=== PATIENT | female | born 1995 | race Caucasian/White ===

== ENCOUNTER 2020-08-29 17:30 | Inpatient (IN) | payer OTHER ==
[2020-08-29] MEDS ORDERED: AMPICILLIN SODIUM 2 GM VIAL ONE (17:52)
[2020-08-29] MEDS ORDERED: AMPICILLIN SODIUM 2 GM VIAL IVPB ONE (18:00)
[2020-08-29 18:10] VITALS: BMI 33.1
[2020-08-29] MEDS ORDERED: ELECTROLYTE-148 SOLN 1,000 ML IV SCH (18:30)
[2020-08-29] MEDS ORDERED: BUTORPHANOL TARTRATE 2 MG/ML VIAL ONE (19:35)
[2020-08-29] MEDS ORDERED: PROMETHAZINE HCL 25 MG/1 ML VIAL ONE (19:35)
[2020-08-29] MEDS ORDERED: PROMETHAZINE HCL 25 MG/1 ML VIAL IVPUSH ONE (19:45)
[2020-08-29] MEDS ORDERED: BUTORPHANOL TARTRATE 1 MG/ML VIAL IVPUSH ONE (19:45)
[2020-08-29 20:00] LABS: BASO % 0.3 % (0-2.0); EOS % 0.1 % (0-4.5); HEMATOCRIT 34.7 % (32.4-45.2); HEMOGLOBIN 11.6 GM/dL (10.7-15.3); LYMPH % 10.1 % (8-40); MCH 28.6 pg (25.7-33.7); MCHC 33.5 g/dl (32.0-36.0); MEAN CELL VOLUME 85.4 fl (80-96); MEAN PLT VOLUME 7.9 fl (7.5-11.1); MONO % 5.1 % (3.8-10.2); NEUT % 84.4 % (42.8-82.8); PLATELET COUNT 301 K/MM3 (134-434); RBC 4.07 M/mm3 (3.60-5.2); RDW 13.7 % (11.6-15.6); WHITE BLOOD COUNT 12.6 K/mm3 (4.0-10.0)
[2020-08-29 20:05] LABS: INR 0.92 (0.83-1.09); PROTHROMBIN TIME (PATIENT) 11.3 SEC (9.7-13.0)
[2020-08-29 20:07] LABS: ACTIVATED PTT 26.2 SECONDS (25.2-36.5)
[2020-08-29 20:24] LABS: CALCIUM 8.5 mg/dL (8.5-10.1)
[2020-08-29 20:25] LABS: BLOOD UREA NITROGEN 7.7 mg/dL (7-18)
[2020-08-29 20:28] LABS: CREATININE 0.5 mg/dL (0.55-1.3)
[2020-08-29] MEDS ORDERED: AMPICILLIN SODIUM 1 GM VIAL ONE (21:59)
[2020-08-29] MEDS: AMPICILLIN SODIUM 1 GM VIAL IVPB SCH (22:00)
[2020-08-29] MEDS ORDERED: LIDOCAINE HCL 1% PRESERVATIVE FREE - 30ML VIAL ONE (23:20)
[2020-08-29] MEDS ORDERED: OXYTOCIN 20 UNITS in 0.9% NS 20 UNIT/1,000 ML INFUS.BAG IV ONE (23:20)
[2020-08-30] MEDS: OXYTOCIN 20 UNITS in 0.9% NS 20 UNIT/1,000 ML INFUS.BAG IV SCH ×2 (01:17→05:35)
[2020-08-30] MEDS ORDERED: BISACODYL 10 MG SUPP.RECT RC PRN (01:27)
[2020-08-30] MEDS ORDERED: WITCH HAZEL 50% (TUCKS) 40 PAD/JAR PAD TP PRN (01:27)
[2020-08-30] MEDS ORDERED: BENZOCAINE 20% 57 GM BOTTLE TP PRN (01:27)
[2020-08-30] MEDS ORDERED: METHYLERGONOVINE MALEATE 0.2 MG/1 ML AMP IM PRN (01:27)
[2020-08-30] MEDS ORDERED: BENZOCAINE 28 GM HEMORRHOIDAL OINTMENT TP PRN (01:27)
[2020-08-30] MEDS: AMPICILLIN SODIUM 1 GM VIAL IVPB SCH ×2 (02:11→16:29)
[2020-08-30] MEDS ORDERED: ACETAMINOPHEN 325 MG TABLET (FP) ONE ×2 (02:13→08:18)
[2020-08-30] MEDS ORDERED: IBUPROFEN 600 MG TABLET (FP) PO ONE ×2 (02:13→08:18)
[2020-08-30] MEDS: ACETAMINOPHEN 325 MG TABLET (FP) PO PRN ×4 (02:15→20:36)
[2020-08-30] MEDS: IBUPROFEN 600 MG TABLET (FP) PO PRN ×4 (02:15→20:36)
[2020-08-30] MEDS ORDERED: OXYTOCIN 20 UNITS in 0.9% NS 20 UNIT/1,000 ML INFUS.BAG IV ONE (03:58)
[2020-08-30] MEDS ORDERED: PRENATAL VITAMINS W/ FOLIC ACID TABLET (FP) PO ONE (08:19)
[2020-08-30] MEDS: PRENATAL VITAMINS W/ FOLIC ACID TABLET (FP) PO SCH (09:36)
[2020-08-30] MEDS ORDERED: DIPHTH,PERTUSS(ACELL),TET 0.5 ML DISP.SYRIN IM ONE (10:00)
[2020-08-31] MEDS: IBUPROFEN 600 MG TABLET (FP) PO PRN ×2 (08:20→17:58)
[2020-08-31] MEDS: ACETAMINOPHEN 325 MG TABLET (FP) PO PRN ×2 (08:21→17:59)
[2020-08-31 08:30] LABS: BASO % 0.3 % (0-2.0); EOS % 0.9 % (0-4.5); HEMATOCRIT 29.1 % (32.4-45.2); HEMOGLOBIN 9.8 GM/dL (10.7-15.3); LYMPH % 22.2 % (8-40); MCH 29.3 pg (25.7-33.7); MCHC 33.8 g/dl (32.0-36.0); MEAN CELL VOLUME 86.7 fl (80-96); MEAN PLT VOLUME 7.5 fl (7.5-11.1); MONO % 6.9 % (3.8-10.2); NEUT % 69.7 % (42.8-82.8); PLATELET COUNT 268 K/MM3 (134-434); RBC 3.35 M/mm3 (3.60-5.2); RDW 14.5 % (11.6-15.6); WHITE BLOOD COUNT 10.1 K/mm3 (4.0-10.0)
[2020-08-31] MEDS: PRENATAL VITAMINS W/ FOLIC ACID TABLET (FP) PO SCH (09:09)
[2020-08-31] MEDS ORDERED: SENNOSIDES/DOCUSATE COMBO (SENNA PLUS) TABLET (UD) PO PRN (22:00)
[2020-09-01] MEDS: IBUPROFEN 600 MG TABLET (FP) PO PRN (06:37)
[2020-09-01] MEDS: ACETAMINOPHEN 325 MG TABLET (FP) PO PRN (06:38)
[2020-09-01] MEDS: PRENATAL VITAMINS W/ FOLIC ACID TABLET (FP) PO SCH (09:18)
[2020-09-01 10:44] VITALS: BP 121/75; PULSE 98; TEMP 98.9
== END 2020-09-01 14:19 | disposition home or self-care (01) | DRG 560 ==
LOC: JLDR 17:30 → J3W 08-30 13:49
PROVIDERS: ADMIT Obstetrics & Gynecology; ATTEND Obstetrics & Gynecology
PROC: 10907ZC Drainage of Amniotic Fluid, Therapeutic from Products of Conception, Via Natural or Artificial Opening (ICD-10-PCS; principal; 2020-08-29)
PROC: 10E0XZZ Delivery of Products of Conception, External Approach (ICD-10-PCS; 2020-08-30)
PROC: 0W8NXZZ Division of Female Perineum, External Approach (ICD-10-PCS; 2020-08-30)
PROC: 0KQM0ZZ Repair Perineum Muscle, Open Approach (ICD-10-PCS; 2020-08-30)
DX: O69.81X0 Labor and delivery complicated by cord around neck, without compression, not applicable or unspecified (principal); O70.1 Second degree perineal laceration during delivery; O99.824 Streptococcus B carrier state complicating childbirth; O90.81 Anemia of the puerperium; D64.9 Anemia, unspecified; Z3A.39 39 weeks gestation of pregnancy; Z37.0 Single live birth
CPT/HCPCS: 36415; 59025; 59409; 80048; 85025; 85610; 85730; 86593; 86780; 86850; 86900; 86901; 90715; C9803; U0003; U0005

== ENCOUNTER 2022-10-04 04:05 | Inpatient (IN) | payer OTHER ==
[2022-10-04 09:42] LABS: BASO % 0.2 % (0-2.0); HEMATOCRIT 34.4 % (32.4-45.2); HEMOGLOBIN 11.5 GM/dL (10.7-15.3); LYMPH % 8.6 % (8-40); MCH 27.4 pg (25.7-33.7); MCHC 33.3 g/dl (32.0-36.0); MEAN CELL VOLUME 82.2 fl (80-96); MEAN PLT VOLUME 7.1 fl (7.5-11.1); MONO % 2.1 % (3.8-10.2); NEUT % 89.1 % (42.8-82.8); PLATELET COUNT 316 10^3/uL (134-434); RBC 4.18 M/mm3 (3.60-5.2); RDW 14.8 % (11.6-15.6); WHITE BLOOD COUNT 12.7 K/mm3 (4.0-10.0)
[2022-10-04 09:48] LABS: INR 0.99 (0.83-1.09); PROTHROMBIN TIME (PATIENT) 11.5 SEC (9.7-13.0)
[2022-10-04 09:51] LABS: ACTIVATED PTT 26.7 SECONDS (25.2-36.5)
[2022-10-04 09:57] LABS: POTASSIUM 3.6 mmol/L (3.5-5.1)
[2022-10-04 09:59] LABS: BLOOD UREA NITROGEN 10.5 mg/dL (7-18)
[2022-10-04 10:02] LABS: CREATININE 0.5 mg/dL (0.55-1.3)
[2022-10-04] MEDS ORDERED: FENTANYL/BUPIVACAINE/NS/PF - PCEA - 50 ML DISP.SYRIN EP ONE ×2 (10:07→14:27)
[2022-10-04 10:29] VITALS: BMI 32.6
[2022-10-04] MEDS ORDERED: BUPIVACAINE HCL/PF 0.25% (2.5MG/ML) 10 ML VIAL ONE (10:29)
[2022-10-04] MEDS ORDERED: LIDO 2%/EPI 1:200000 PRESRVFRE (20 ML SDVIAL) ONE (10:29)
[2022-10-04] MEDS ORDERED: NALOXONE HCL 0.4 MG/ML VIAL IVPUSH PRN (10:57)
[2022-10-04] MEDS ORDERED: FENTANYL/BUPIVACAINE/NS/PF - PCEA - 50 ML DISP.SYRIN EP SCH (11:00)
[2022-10-04] MEDS ORDERED: OXYTOCIN 20 UNITS in 0.9% NS 20 UNIT/1,000 ML INFUS.BAG IV ONE (15:26)
[2022-10-04] MEDS ORDERED: LIDOCAINE HCL 1% PRESERVATIVE FREE - 30ML VIAL ONE (15:27)
[2022-10-04] MEDS ORDERED: oxyCODONE HCL 5 MG TABLET PO PRN (15:57)
[2022-10-04] MEDS ORDERED: METHYLERGONOVINE MALEATE 0.2 MG/1 ML AMP IM PRN (15:57)
[2022-10-04] MEDS ORDERED: BENZOCAINE 28 GM HEMORRHOIDAL OINTMENT TP PRN (15:57)
[2022-10-04] MEDS ORDERED: BENZOCAINE 20% 57 GM BOTTLE TP PRN (15:57)
[2022-10-04] MEDS ORDERED: WITCH HAZEL 50% (TUCKS) 40 PAD/JAR PAD TP PRN (15:57)
[2022-10-04] MEDS ORDERED: BISACODYL 10 MG SUPP.RECT RC PRN (15:57)
[2022-10-04] MEDS ORDERED: ACETAMINOPHEN 325 MG TABLET (FP) PO PRN (15:57)
[2022-10-04] MEDS ORDERED: OXYTOCIN 20 UNITS in 0.9% NS 20 UNIT/1,000 ML INFUS.BAG IV SCH (16:00)
[2022-10-04] MEDS ORDERED: ELECTROLYTE-148 SOLN 1,000 ML IV SCH (16:30)
[2022-10-04] MEDS ORDERED: MISOPROSTOL 200 MCG TABLET ONE (17:15)
[2022-10-04] MEDS ORDERED: MISOPROSTOL 200 MCG TABLET PR ONE (17:25)
[2022-10-04] MEDS ORDERED: ACETAMINOPHEN 325 MG TABLET (FP) ONE (18:11)
[2022-10-04] MEDS: IBUPROFEN 600 MG TABLET (FP) PO PRN (20:27)
[2022-10-05] MEDS: IBUPROFEN 600 MG TABLET (FP) PO PRN ×2 (05:47→12:35)
[2022-10-05 07:55] LABS: BASO % 0.2 % (0-2.0); EOS % 0.6 % (0-4.5); HEMATOCRIT 30.5 % (32.4-45.2); HEMOGLOBIN 10.1 GM/dL (10.7-15.3); LYMPH % 16.3 % (8-40); MCH 27.7 pg (25.7-33.7); MEAN CELL VOLUME 84.1 fl (80-96); MEAN PLT VOLUME 7.3 fl (7.5-11.1); MONO % 8.7 % (3.8-10.2); NEUT % 74.2 % (42.8-82.8); PLATELET COUNT 269 10^3/uL (134-434); RBC 3.63 M/mm3 (3.60-5.2); RDW 14.8 % (11.6-15.6); WHITE BLOOD COUNT 12.8 K/mm3 (4.0-10.0)
[2022-10-05] MEDS ORDERED: SENNOSIDES/DOCUSATE COMBO (SENNA PLUS) TABLET (UD) PO PRN (22:00)
[2022-10-05 22:49] VITALS: BP 100/54; PULSE 87; RESP 18; TEMP 97.7
[2022-10-06] MEDS: IBUPROFEN 600 MG TABLET (FP) PO PRN ×2 (01:13→09:08)
== END 2022-10-06 13:27 | disposition home or self-care (01) | DRG 560 ==
LOC: JDEL 04:05 → JLDR 08:00 → J3W 18:40
PROVIDERS: ADMIT Obstetrics & Gynecology; ATTEND Obstetrics & Gynecology
PROC: 10E0XZZ Delivery of Products of Conception, External Approach (ICD-10-PCS; principal; 2022-10-04)
PROC: 0HQ9XZZ Repair Perineum Skin, External Approach (ICD-10-PCS; 2022-10-04)
DX: O70.0 First degree perineal laceration during delivery (principal); Z3A.40 40 weeks gestation of pregnancy; Z37.0 Single live birth
CPT/HCPCS: 36415; 59025; 80048; 85025; 85610; 85730; 86780; 86850; 86900; 86901

== ENCOUNTER 2022-10-26 19:45 | Emergency (ER) | payer OTHER ==
[2022-10-26 19:49] VITALS: BMI 29.5
[2022-10-26] MEDS ORDERED: ACETAMINOPHEN 325 MG TABLET (FP) PO ONE (21:14)
[2022-10-26] MEDS ORDERED: ACETAMINOPHEN 325 MG TABLET (FP) ONE (21:23)
[2022-10-26 21:55] LABS: BASO % 0.8 % (0-2.0); EOS % 0.4 % (0-4.5); EPI CELLS 7 /uL (0-25.1); HEMATOCRIT 37.2 % (32.4-45.2); HEMOGLOBIN 11.8 GM/dL (10.7-15.3); HYALINE CASTS 0 /uL (0-3.1); LYMPH % 14.7 % (8-40); MCH 26.9 pg (25.7-33.7); MCHC 31.8 g/dl (32.0-36.0); MEAN CELL VOLUME 84.5 fl (80-96); MONO % 6.9 % (3.8-10.2); NEUT % 77.2 % (42.8-82.8); PLATELET COUNT 430 10^3/uL (134-434); RBC 4.41 M/mm3 (3.60-5.2); URINE APPEARANCE CLEAR; URINE BACTERIA 6 /uL (0-1359); URINE BILIRUBIN NEGATIVE (NEGATIVE); URINE COLOR YELLOW; URINE GLUCOSE (UA) NEGATIVE (NEGATIVE); URINE KETONE NEGATIVE (NEGATIVE); URINE LEUK ESTERASE 1+ (NEGATIVE); URINE NITRITE NEGATIVE (NEGATIVE); URINE PROTEIN NEGATIVE (NEGATIVE); URINE RBC 2 /uL (0-23.9); URINE UROBILINOGEN 0.2 mg/dL (0.2-1.0); URINE WBC 30 /uL (0-25.8); WHITE BLOOD COUNT 8.9 K/mm3 (4.0-10.0)
[2022-10-26 22:16] LABS: POTASSIUM 4.1 mmol/L (3.5-5.1)
[2022-10-26 22:18] LABS: ALBUMIN 3.6 g/dl (3.4-5.0); CALCIUM 9.1 mg/dL (8.5-10.1)
[2022-10-26 22:19] LABS: BLOOD UREA NITROGEN 14.7 mg/dL (7-18)
[2022-10-26 22:21] LABS: CREATININE 0.9 mg/dL (0.55-1.3)
[2022-10-26 22:23] LABS: BILIRUBIN,TOTAL 0.3 mg/dL (0.2-1); TOT PROT 7.3 g/dl (6.4-8.2)
[2022-10-26] MEDS ORDERED: AMOX TR/POT CLAV 875MG/125MG TABLETS (FP) PO ONE (22:48)
[2022-10-26 22:53] VITALS: BP 100/56; PULSE 113; RESP 16
[2022-10-26 22:55] VITALS: TEMP 99.1
== END 2022-10-26 23:38 | disposition home or self-care (01) ==
LOC: JER 19:45
DX: O90.89 Other complications of the puerperium, not elsewhere classified (principal); R50.9 Fever, unspecified; N64.4 Mastodynia; M54.50 Low back pain, unspecified; K59.00 Constipation, unspecified; H92.02 Otalgia, left ear; N61.0 Mastitis without abscess; H60.92 Unspecified otitis externa, left ear; Z20.822 Contact with and (suspected) exposure to COVID-19
CPT/HCPCS: 0241U-QW; 36415; 80053; 81003; 85025; 99283-25